=== PATIENT | male | born 1955 | race Caucasian/White ===

== ENCOUNTER → 2019-07-09 | Day surgery (SDC) | payer BC, OTHER ==
[~2019-07-09] VITALS: Ht 177.8 cm; Wt 117.9 kg
[~2019-07-09] MED LIST: ELIQUIS5 MG PO; LOPRESSOR25 PO; NORCO 5-325 TA1 EAC1 PO; TRIAMTERENE-HC1 EAC2 PO
[2019-07-09 12:43] LABS: CALCIUM 9.5 mg/dL (8.5-10.1); CREATININE 1.2 mg/dL (0.7-1.3); POTASSIUM 3.4 mmol/L (3.5-5.1)
[2019-07-09 13:30] VITALS: BP 136/76
[2019-07-09 15:48] VITALS: BP 136/76
--- NOTE | 2019-07-11 14:33 | O ---
[facility] [place] [address] OPERATIVE REPORT Name: JORGE COWAN V Room #: [facility].#: [id number] Admission: 07/09/19 Attend Phys: Milan Garcia MD Discharge: Date of : 57 Report #: [id number] THIS REPORT FOR: //name// CC: Hiram Garcia DATE OF SERVICE: 07/09/2019 PREOPERATIVE DIAGNOSIS: Right knee posterior horn medial meniscus tear. POSTOPERATIVE DIAGNOSES: 1. Right knee posterior horn medial meniscus tear. 2. Grade 3 chondromalacia of the medial femoral condyle. 3. Grade 2 chondromalacia of the patella. PROCEDURES: Right knee arthroscopy with partial medial meniscectomy. SURGEON: Milan Garcia MD. TRANSFER MACHINE OPERATOR: Kelley Garces PA-C. ANESTHESIA: General. TOURNIQUET TIME: 15 minutes. COMPLICATIONS: None. SPECIMENS: None. CONDITION UPON LEAVING THE OPERATING ROOM: Stable. INDICATIONS FOR PROCEDURE: The patient is a 64-year-old gentleman who has had medial-sided right knee pain. He had an MRI scan showing to have a horizontal tear of the posterior horn of the medial meniscus. After discussion with him, he elected for right knee arthroscopy with partial medial meniscectomy and debridement as needed. DESCRIPTION OF PROCEDURE: Risks, benefits, alternatives, complications were discussed in detail with the patient including but not limited to risk of anesthesia, risk of damage to nerves, arteries, blood vessels, risk for infection, bleeding, risk for continued knee pain, need for reoperation. Informed consent was obtained from the patient. The right knee was appropriately marked in the preoperative holding area. IV Ancef was given for preoperative antibiotics. He was brought to the operating room and placed in supine position on operating room table. LMA anesthesia was induced without complication. Tourniquet was placed on the right thigh. Right lower extremity [address] [address] OPERATIVE REPORT Name: CHAPOJORGE Hanh Room #: [facility].#: [id number] Admission: 07/09/19 Attend Phys: Milan Garcia MD Discharge: Date of : 57 Report #: [id number] was prepped and draped in normal sterile fashion. Timeout was performed properly identifying the patient and procedure as well as the instrumentation. All in the operating room were in agreement. Right lower extremity was exsanguinated, tourniquet was inflated. Tourniquet time was 15 minutes. Standard anterolateral portal was established with 11 blade through the skin. Arthroscope was introduced into the patellofemoral compartment, diagnostic arthroscopy was undertaken. Patellofemoral compartment was visualized and found to have grade 2 chondromalacia of the patella. Medial gutter was visualized and found to be without pathology. Medial compartment was visualized and medial portal was established under arthroscopic visualization. Probe was introduced into the medial compartment and there was noted to be a horizontal type tear of the posterior horn of medial meniscus. This was trimmed back to stable rim with arthroscopic biter and smoothed back with a shaver. In addition, there was grade 3 chondromalacia of the medial femoral condyle and grade 2 chondromalacia of the medial tibial plateau. Notch was visualized and found to have an intact anterior cruciate ligament. Lateral compartment was visualized and found to have an intact lateral meniscus. Scope was then placed back in the patellofemoral compartment and all fluid was allowed to drain from the knee. Knee was injected with 10 mL of 0.5% Marcaine. Incision was closed with 3-0 nylon. Soft dressing of Adaptic, 4 x 4, Webril, Beau wrap were applied. The patient tolerated this procedure well and went to the recovery room under the care of anesthesia postoperatively. <ELECTRONICALLY SIGNED> By: Milan Garcia MD 07/11/19 1433 [id number] 1809 Milan Garcia MD /nt
== END | disposition home or self-care (01) ==
LOC: OR 11:24
PROVIDERS: Orthopaedic Surgery
DX: M25.561 Pain in right knee (principal); M23.221 Derangement of posterior horn of medial meniscus due to old tear or injury, right knee; M17.11 Unilateral primary osteoarthritis, right knee; M94.261 Chondromalacia, right knee; I10 Essential (primary) hypertension; E78.5 Hyperlipidemia, unspecified; I48.91 Unspecified atrial fibrillation; G47.30 Sleep apnea, unspecified; E66.9 Obesity, unspecified; Z79.899 Other long term (current) drug therapy; Z79.01 Long term (current) use of anticoagulants; Z98.890 Other specified postprocedural states; Z68.37 Body mass index [BMI] 37.0-37.9, adult
CPT/HCPCS: 50010; 50101; 50405; 51038; 54170; 56526; 57103; 57180; 62110; 62900; 70005